=== PATIENT | male | born 1950 | race Caucasian/White ===

== ENCOUNTER 2017-05-17 05:36 | Outpatient (CLI) | payer MEDICARE ==
[~2017-05-17] VITALS: Ht 180.3 cm; Wt 95.3 kg
[~2017-05-17 05:36] MED LIST: BENA1TAB2 PO; DEXL60CA5 PO; IRBE300T9 PO
[2017-05-17] MEDS ORDERED: METO-351 PO (10:31)
== END 2017-05-17 10:35 ==
LOC: PREOP 05:36
PROVIDERS: ATTEND Internal Medicine
DX: Z01.818 Encounter for other preprocedural examination (principal); Z85.038 Personal history of other malignant neoplasm of large intestine

== ENCOUNTER 2017-05-19 07:25 | Day surgery (SDC) | payer MEDICARE ==
--- NOTE | 2017-05-16 05:48 | HISTORY AND PHYSICAL ---
DATE OF SERVICE: 05/19/2017 HISTORY OF PRESENT ILLNESS: The patient is a 66-year-old white male seen for followup of colon cancer and hypertension. 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 On his last colonoscopy in 04/2013. No evidence for neoplasia was noted and no abnormalities were noted per Dr. Hughes. He also has history of reflux and reportedly had LA grade B changes on an EGD at that time. There was no evidence for intestinal metaplasia, and no other abnormalities were noted. With weight loss he reports he only has occasional bouts of reflux if he eats too late at night and eats too much. He denies dysphagia, melena, bright red blood per rectum, abdominal pain or distention. He has been feeling well with normal energy level. He has had 2 reported gouty attacks in the past and none in the interval 6 months since his last visit. MEDICATIONS ON ADMISSION: Include metoprolol ER 25 mg daily, irbesartan 300 mg daily, occasional Nexium for reflux over the counter. 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 FAMILY HISTORY: Mother of cervical cancer at the age of 85. Father of complications of COPD and peripheral vascular disease at the age of 82. He is not aware of any family history for colon cancer. He had 1 brother who at age 68 secondary to lung cancer, who I believe was a smoker. PHYSICAL EXAMINATION: GENERAL: Reveals a well appearing white male in no acute distress. VITAL SIGNS: Blood pressure was 122/70, weight was down 3 pounds to 210, height is 5 foot 10. NECK: Revealed no JVD, adenopathy or bruits. CHEST: Clear. CARDIOVASCULAR: Regular rate and rhythm without murmur, S3 or S4. ABDOMEN: Reveals well healed midline surgical incision. No masses, organomegaly or tenderness are noted. Bowel sounds are noted bilaterally. EXTREMITIES: Reveal no cyanosis, clubbing or edema. Skin evaluation of the face, chest and back reveal no suspicious nevi. ASSESSMENT AND PLAN: 1. Hypertension under good control on current therapy. No changes recommended. 2. The patient was set up for surveillance colonoscopy due to past history of colon cancer. Prep instructions with Suprep kit were given. Questions were answered. The patient was set up for 05/19. Job ID: [id number] DocumentID: [id number] Dictated Date: 05/03/2017 16:37:34 Environmental Research Project Manager Date: 05/03/2017 17:46:00 Dictated By: MYRANDA VILLALPANDO MD
[~2017-05-19] VITALS: Ht 180.3 cm; Wt 95.3 kg
[~2017-05-19 07:25] MED LIST changes: +METO-351 PO
[2017-05-19] MEDS ORDERED: MIDAZOLAM 2 MG/2 ML (VERSED) VIAL IVP PRN (07:30)
[2017-05-19] MEDS ORDERED: fentaNYL INJECTION 100 MCG/2 ML AMP IVP PRN (07:30)
[2017-05-19] MEDS ORDERED: 1/2 NS IV SOLUTION 1,000 ML IV STA (07:30)
--- OUTSIDE RECORDS SUMMARY | 2017-05-19 07:32 | XMS REPORT | Continuity of Care Document ---
Author Author [facility] Organization [facility] Address Unknown Phone Unavailable Care Team Providers Care Mascara Molder Name Role Phone JAMES DODGE MD PP Insurance Providers Payer Name Policy Number Subscriber Name Relationship [facility] [id number] Moncho Martin 01 Self / Same As Patient Advance Directives Directive Response Recorded Date Advance Directives N 04/25/13 7:47am Health Care Power of Supervisor Powdered Metal N 04/25/13 7:47am Organ Donor N 04/25/13 7:47am Problems No Known Problems or Medical conditions. Allergies, Adverse Reactions, Alerts Allergen Type Severity Reaction Last Updated carisoprodol Allergy HIVES 02/24/11 Medications Medication Dose Units Route Sig Qty Days Dexlansoprazole (Dexilant) 60 Mg PO DAILY Benazepril/HCTZ (Lotensin Hct 10-12.5 Tablet) 1 Each PO DAILY Irbesartan (Avapro) 300 Mg PO DAILY Response Recorded Date/Time Status not known Unknown Results Test Date Result Interp. Ref. Range Alanine Aminotransferase (ALT/SGPT) December 17, 2009 1:34pm 42 U/L N 30-65 Albumin December 17, 2009 1:34pm 3.8 G/ DL N 3.4-5.0 Alkaline Phosphatase December 17, 2009 1:34pm 63 U/L N 50-136 Aspartate Amino Transf (AST/SGOT) December 17, 2009 1:34pm 17 U/L N 15-37 BUN/Creatinine Ratio December 17, 2009 1:34pm 15 - Band Neutrophils April 22, 2008 12:25pm 21 % - Basophils # (Auto) December 17, 2009 1:34pm 0.0 10^3/uL N 0.0-0.1 Basophils % (Manual) April 22, 2008 12:25pm 0 % - Basophils (%) (Auto) December 17, 2009 1:34pm 1 % N 0-10 Blood Urea Nitrogen December 17, 2009 1:34pm 17 MG/DL N 7-18 Calcium Level December 17, 2009 1:34pm 8.3 MG/DL L 8.5-10.1 Carbon Dioxide Level December 17, 2009 1:34pm 30 MMOL/L N 21-32 Carcinoembryonic Antigen December 17, 2009 1:34pm 1.2 NG/ML - Chloride Level December 17, 2009 1:34pm 102 MMOL/L N 101-110 Creatinine December 17, 2009 1:34pm 1.1 MG/DL N 0.6-1.3 Eosinophils # (Auto) December 17, 2009 1:34pm 0.2 10^3/uL N 0.0-0.3 Eosinophils % (Manual) April 22, 2008 12:25pm 0 % - Eosinophils (%) (Auto) December 17, 2009 1:34pm 3 % N 0-10 Glucose Level December 17, 2009 1:34pm 100 MG/DL N 70-126 Hematocrit December 17, 2009 1:34pm 40 % N 40-54 Hemoglobin December 17, 2009 1:34pm 14.2 G/DL N 13.3-17.7 Lymphocytes # (Auto) December 17, 2009 1:34pm 2.2 X 10^3 N 1.0-4.0 Lymphocytes % (Manual) April 22, 2008 12:25pm 15 % - Lymphocytes (%) (Auto) December 17, 2009 1:34pm 32 % N 12-44 Mean Corpuscular Hemoglobin December 17, 2009 1:34pm 32 PG N 25-34 Mean Corpuscular Hemoglobin Concent December 17, 2009 1:34pm 35 G/DL N 32-36 Mean Corpuscular Volume December 17, 2009 1:34pm 90 FL N 80-99 Mean Platelet Volume December 17, 2009 1:34pm 9.2 FL N 7.4-10.4 Monocytes # (Auto) December 17, 2009 1:34pm 0.7 X 10^3 N 0.0-1.0 Monocytes % (Manual) April 22, 2008 12:25pm 3 % - Monocytes (%) (Auto) December 17, 2009 1:34pm 10 % N 0-12 Neutrophils # (Auto) December 17, 2009 1:34pm 3.8 X 10^3 N 1.8-7.8 Neutrophils % (Manual) April 22, 2008 12:25pm 59 % - Neutrophils (%) (Auto) December 17, 2009 1:34pm 55 % N 42-75 Platelet Count December 17, 2009 1:34pm 208 10^3/uL N 130-400 Potassium Level December 17, 2009 1:34pm 3.8 MMOL/L N 3.6-5.0 Reactive Lymphocytes April 22, 2008 12:25pm 2 % - Red Blood Count December 17, 2009 1:34pm 4.47 10^6/uL N 4.35-5.85 Red Cell Distribution Width December 17, 2009 1:34pm 13.1 % N 10.0-14.5 Sodium Level December 17, 2009 1:34pm 138 MMOL/L N 135-145 Total Bilirubin December 17, 2009 1:34pm 0.9 MG/DL N 0.0-1.0 Total Protein December 17, 2009 1:34pm 6.7 G/DL N 6.4-8.2 White Blood Count December 17, 2009 1:34pm 6.9 10^3/uL N 4.3-11.0 Estimat Glomerular Filtration Rate December 17, 2009 1:34pm > 60 - Blood Morphology Comment April 22, 2008 12:25pm Normal - Procedures Procedure Code Date DIAGNOSTIC COLONOSCOPY 43197 09/24/07 UPPER GI ENDOSCOPY BIOPSY 02009 09/24/07 UPPER GI ENDOSCOPY BIOPSY [id number] 11/06/08 DIAGNOSTIC COLONOSCOPY 55441 02/24/11 UPPER GI ENDOSCOPY BIOPSY 56808 02/24/11 UPPER GI ENDOSCOPY BIOPSY 25164 06/09/11
[2017-05-19 07:47] VITALS: BP 168/107
[2017-05-19] MEDS ORDERED: LIDOCAINE JELLY 2% (XYLOCAINE) 5 ML TUBE ONE (07:53)
[2017-05-19] MEDS ORDERED: fentaNYL INJECTION 100 MCG/2 ML AMP ONE (07:53)
[2017-05-19] MEDS ORDERED: MIDAZOLAM 2 MG/2 ML (VERSED) VIAL ONE (07:53)
--- NOTE | 2017-05-19 07:53 | Pre-Op Note & Conscious Sedat ---
Pre-Operative Progress Note H&P Reviewed The H&P was reviewed, patient examined and no changes noted. Date H&P Reviewed: May 19, 2017 Time H&P Reviewed: 07:50 Conscious Sedation Pre-Proced ASA Class: 2 Airway Mallampati Classification: (confed[place] sal[place] appropriate class) I. II. III, IV Lungs Heart ASA score ASA 1: a normal healthy patient ASA 2: a patient with a mild systemic disease (mid diabetes, controlled hypertension, obesity ASA 3: a patient with a severe systemic disease that limits activity (angina , COPD, prior Myocardial infarction) ASA 4: a patient with an incapacitating disease that is a constant threat to life (CHF, renal failure) ASA 5: a moribund patient not expected to survive 24 hrs. (ruptured aneurysm) ASA 6: a declared brain patient whose organs are being harvested. For emergent operations, add the letter E after the classification Grade 2 Sedation Plan: Analgesia, Amnesia, Plan communicated to team members, Discussed options with patient/fam, Discussed risks with patient/fam Note The patient is an appropriate candidate to undergo the planned procedure, sedation, and anesthesia. The patient immediately re-assessed prior to indication. MYRANDA VILLALPANDO MD May 19, 2017 07:53
[2017-05-19 09:00] VITALS: BP 159/95
[2017-05-19 09:30] VITALS: BP 150/94
[2017-05-19] MEDS ORDERED: LIDOCAINE JELLY 2% (XYLOCAINE) 5 ML TUBE TOP ONE (12:15)
--- NOTE | 2017-05-20 10:16 | OPERATIVE REPORT ---
PROCEDURE PHYSICIAN: MYRANDA VILLALPANDO DATE OF PROCEDURE: 05/19/2017 ONCOLOGIST: Dr. Remy PROCEDURE: The patient was placed in left lateral decubitus position. Prior to undergoing colonoscopy, digital rectal evaluation was performed. Anal sphincter tone was normal and the perianal reflex was intact. The prostate was mildly enlarged, nontender and anodular to digital inspection. The colonoscope was then inserted into the rectum and under direct visualization, advanced to the cecum. The cecum was identified by identification of the ileocecal valve, cecal strap. Photographic documentation was obtained. Careful inspection was made as the endoscope was withdrawn. The patient tolerated the procedure well. FINDINGS: There no evidence for internal or external hemorrhoids and the rectum was unremarkable. Present at approximately 12 cm from the anal verge in the distal sigmoid colon, just above the rectosigmoid junction was an unremarkable appearing anastomotic margin. Saved for a little indention extrinsically, a biopsy was obtained. There was no evidence for induration or mass type effect on biopsy. Submitted for histopathology. One diminutive hyperplastic appearing distal sigmoid polyp was noted measuring 3 mm in size. It was biopsied and ablated, and submitted for histopathology. Present in the proximal sigmoid colon another diminutive polyp was noted versus a prominent lymphoid follicle. It was biopsied, ablated, and submitted for histopathology with no significant blood loss. Diminutive hyperplastic appearing polyp was noted at the splenic flexure. It was biopsied and ablated, and submitted for histopathology. Present in the distal transverse colon was an area of likely scope trauma with erythema. It was biopsied and submitted for histopathology. The remainder of the transverse colon, hepatic flexure, ascending colon and cecum, as well as ileocecal valve were unremarkable. ASSESSMENT: No evidence for colon cancer was noted today. Multiple diminutive polyps as noted above were removed. I suspect at worst one may be compatible with a tubular adenoma. The patient had digital findings compatible with mild BPH. As long as there are no surprises on histopathology report, we will advocate consideration for repeat surveillance colonoscopy in 3 years. Job ID: [id number] Dictated Date: 05/19/2017 11:54:13 Fish Protector Date: 05/20/2017 10:05:36 / stone
== END 2017-05-19 09:35 | disposition home or self-care (01) ==
LOC: ENDO 07:25
PROVIDERS: ATTEND Internal Medicine
DX: Z12.11 Encounter for screening for malignant neoplasm of colon (principal); D12.3 Benign neoplasm of transverse colon; K63.5 Polyp of colon; Z85.038 Personal history of other malignant neoplasm of large intestine; I10 Essential (primary) hypertension; Z79.899 Other long term (current) drug therapy

== ENCOUNTER 2020-09-07 04:34 | Emergency (ER) | payer MEDICARE ==
[~2020-09-07] VITALS: Ht 180.3 cm; Wt 95.2 kg
[2020-09-07] MEDS ORDERED: diphenhydrAMINE 50 MG/ML INJ (BENADRYL) IV STA (04:39)
[2020-09-07] MEDS ORDERED: methylPREDNISolone 125 MG (Solu-MEDROL) VIAL IV STA (04:39)
[2020-09-07] MEDS ORDERED: FAMOTIDINE 20MG/2ML IV (PEPCID) IV STA (04:39)
--- NOTE | 2020-09-07 04:44 | ED EENT ---
History of Present Illness General Chief Complaint: Oral/Throat Problems Stated Complaint: SOA Source: patient History of Present Illness Date Seen by Provider: Sep 07, 2020 Time Seen by Provider: 04:35 Initial Comments PT ARRIVES VIA POV FROM HOME C/O SWELLING TO THROAT/NECK AND TO UVULA--BEGAN LAST NIGHT NO SHORTNESS OF BREATH NO CHEST PAIN NO RASH NO ITCHING NO SWELLING ANYWHERE ELSE PT WAS ABLE TO SWALLOW LIQUIDS PRIOR TO ARRIVAL NO HISTORY OF SIMILAR PT IS ON AN ARB AND BETA-TAMI FOR HTN NO RECENT MEDICATION CHANGES NO NEW FOODS NO FEVER OR RECENT ILLNESS PCP: DR. VILLALPANDO Allergies and Home Medications Allergies Coded Allergies: carisoprodol (Unverified Allergy, Unknown, HIVES, 09/07/20) Uncoded Allergies: MUSCLE RELAXANT (Allergy, Unknown, 09/07/20) Home Medications Irbesartan 300 Mg Tablet, 300 MG PO DAILY, (Reported) Metoprolol Succinate 25 Mg Tab.er.24h, 25 MG PO DAILY, (Reported) Patient Home Medication List Home Medication List Reviewed: Yes Review of Systems Review of Systems Constitutional: no symptoms reported Eyes: No Symptoms Reported Ears: No Symptoms Reported Nose: no symptoms reported Mouth: no symptoms reported Throat: see HPI Respiratory: no symptoms reported Cardiovascular: no symptoms reported Gastrointestinal: no symptoms reported Musculoskeletal: no symptoms reported Skin: no symptoms reported Neurological: No Symptoms Reported Hematologic/Lymphatic: No Symptoms Reported Immunological/Allergic: no symptoms reported Past Kjyrwgw-Polihf-Fqugsk Hx Past Med/Social Hx: Reviewed and Corrections made Patient Social History Type Used: Cigarettes Former Smoker, Quit: May 17, 1995 Recent Foreign Travel: No Contact w/Someone Who Travel: No Recent Hopitalizations: No Immunizations Up To Date Date of Influenza Vaccine: Aug 01, 2016 Seasonal Allergies Seasonal Allergies: No Past Medical History Surgeries: Yes Abdominal Respiratory: No Cardiac: Yes Hypertension Reproductive Disorders: No Sexually Transmitted Disease: Yes HIV/AIDS: No Gastrointestinal: Yes (COLON CANCER) Gastroesophageal Reflux, Chronic Diarrhea, Polyps Musculoskeletal: Yes Gout Loss of Vision: Bilateral Hearing Impairment: Denies Cancer: Yes Colon Did You Recieve Any Treatments: Yes What Type of Treatment Did You: Surgical Intervention Adverse Reaction/Blood Tranf: No (N/A) Physical Exam Vital Signs Vital Signs - First Documented 09/07/20 04:35 Temp 36.2 Pulse 90 Resp 18 B/P (MAP) 167/107 (127) Pulse Ox 99 O2 Delivery Room Air Height, Weight, BMI Height: 5'11.00" Weight: 210lbs. 0.0oz. 95.569186hn; 29.3 BMI Method: General Appearance: WD/WN, no apparent distress Mouth/Throat: No tongue swollen, No tonsillar swelling; uvula swelling, voice changes (VERY SLIGHTLY MUFFLED. ), other (SWELLING TO ANTERIOR NECK) Neck: non-tender, normal inspection Cardiovascular: regular rate, rhythm, no murmur Respiratory: normal breath sounds, no respiratory distress, no accessory muscle use; No stridor Neurologic/Psychiatric: alert, normal mood/affect Skin: normal color, warm/dry; No rash Progress/Results/Core Measures Results/Orders Lab Results Laboratory Tests Test 09/07/20 04:42 Range/Units White Blood Count 7.8 4.3-11.0 10^3/uL Red Blood Count 4.49 4.30-5.52 10^6/uL Hemoglobin 14.5 13.3-17.7 g/dL Hematocrit 43 40-54 % Mean Corpuscular Volume 96 80-99 fL Mean Corpuscular Hemoglobin 32 25-34 pg Mean Corpuscular Hemoglobin Concent 34 32-36 g/dL Red Cell Distribution Width 12.7 10.0-14.5 % Platelet Count 227 130-400 10^3/uL Mean Platelet Volume 9.1 9.0-12.2 fL Immature Granulocyte % (Auto) 1 % Neutrophils (%) (Auto) 54 42-75 % Lymphocytes (%) (Auto) 33 12-44 % Monocytes (%) (Auto) 7 0-12 % Eosinophils (%) (Auto) 4 0-10 % Basophils (%) (Auto) 1 0-10 % Neutrophils # (Auto) 4.2 1.8-7.8 10^3/uL Lymphocytes # (Auto) 2.6 1.0-4.0 10^3/uL Monocytes # (Auto) 0.6 0.0-1.0 10^3/uL Eosinophils # (Auto) 0.3 0.0-0.3 10^3/uL Basophils # (Auto) 0.0 0.0-0.1 10^3/uL Immature Granulocyte # (Auto) 0.1 0.0-0.1 10^3/uL Erythrocyte Sedimentation Rate 8 0-30 MM/HR Prothrombin Time 12.5 12.2-14.7 SEC INR Comment 0.9 0.8-1.4 Activated Partial Thromboplast Time 28 24-35 SEC Sodium Level 142 135-145 MMOL/L Potassium Level 4.3 3.6-5.0 MMOL/L Chloride Level 106 98-107 MMOL/L Carbon Dioxide Level 24 21-32 MMOL/L Anion Gap 12 5-14 MMOL/L Blood Urea Nitrogen 18 7-18 MG/DL Creatinine 0.90 0.60-1.30 MG/DL Estimat Glomerular Filtration Rate > 60 BUN/Creatinine Ratio 20 Glucose Level 98 70-105 MG/DL Calcium Level 8.6 8.5-10.1 MG/DL Corrected Calcium 8.6 8.5-10.1 MG/DL Total Bilirubin 0.6 0.1-1.0 MG/DL Aspartate Amino Transf (AST/SGOT) 21 5-34 U/L Alanine Aminotransferase (ALT/SGPT) 24 0-55 U/L Alkaline Phosphatase 45 40-136 U/L Total Protein 7.0 6.4-8.2 GM/DL Albumin 4.0 3.2-4.5 GM/DL My Orders Orders - JAY JAY HEIN DO Ed Iv/Invasive Line Start (09/07/20 04:39) Monitor-Rhythm Ecg Trace Only (09/07/20 04:39) Cbc With Automated Diff (09/07/20 04:39) Comprehensive Metabolic Panel (09/07/20 04:39) Erythrocyte Sedimentation Rate (09/07/20 04:39) Protime With Inr (09/07/20 04:39) Partial Thromboplastin Time (09/07/20 04:39) Methylprednisolone Sod Succ (Solu-Medrol (09/07/20 04:39) Diphenhydramine Injection (Benadryl Inje (09/07/20 04:39) Famotidine Injection (Pepcid Injection) (09/07/20 04:39) Epinephrine 1 Mg Injection (Adrenalin I (09/07/20 04:45) Medications Given in ED Current Medications Medications Dose Ordered Sig/Kevin Route Start Time Stop Time Status Last Admin Dose Admin Epinephrine HCl 0.3 mg ONCE ONCE IM 09/07/20 04:45 09/07/20 04:46 DC 09/07/20 04:58 0.3 MG Vital Signs/I&O 09/07/20 04:35 Temp 36.2 Pulse 90 Resp 18 B/P (MAP) 167/107 (127) Pulse Ox 99 O2 Delivery Room Air Progress Progress Note : Progress Note GIVEN EPINEPHRINE, SOLU-MEDROL, PEPCID AND BENADRYL WITH IMPROVEMENT IN SYMPTOMS DECREASED SWELLING OF UVULA AND ANTERIOR NECK VOICE IS NORMAL NO PROBLEMS SWALLOWING FEELS COMFORTABLE GOING HOME STATES HE HAS PREDNISONE AT HOME IF HE NEEDS IT. Departure Impression Primary Impression: Angioedema Additional Impression: Uvular swelling Disposition: HOME, SELF-CARE Condition: Improved Departure-Patient Inst. Referrals: MYRANDA VILLALPANDO MD (PCP) Primary Care Physician Patient Instructions: Angioedema (DC) Add. Discharge Instructions: FOLLOW UP WITH DR. VILLALPANDO FOR FURTHER CARE All discharge instructions reviewed with patient and/or family. Voiced understanding. JAY JAY HEIN DO Sep 07, 2020 04:44
[2020-09-07] MEDS ORDERED: EPINEPHrine INJECTION 1 MG/ML AMP IM ONE (04:45)
[2020-09-07 04:49] LABS: BASOPHILS % (AUTO) 1 % (0-10); EOSINOPHILS # (AUTO) 0.3 10^3/uL (0.0-0.3); EOSINOPHILS % (AUTO) 4 % (0-10); HEMATOCRIT 43 % (40-54); HEMOGLOBIN 14.5 g/dL (13.3-17.7); LYMPHOCYTES # (AUTO) 2.6 10^3/uL (1.0-4.0); LYMPHOCYTES % (AUTO) 33 % (12-44); MEAN CORPUSCULAR HEMOGLOBIN 32 pg (25-34); MEAN CORPUSCULAR HGB CONC 34 g/dL (32-36); MEAN CORPUSCULAR VOLUME 96 fL (80-99); MEAN PLATELET VOLUME 9.1 fL (9.0-12.2); MONOCYTES # (AUTO) 0.6 10^3/uL (0.0-1.0); MONOCYTES % (AUTO) 7 % (0-12); NEUTROPHILS # (AUTO) 4.2 10^3/uL (1.8-7.8); NEUTROPHILS % (AUTO) 54 % (42-75); PLATELET COUNT 227 10^3/uL (130-400); WHITE BLOOD COUNT 7.8 10^3/uL (4.3-11.0)
[2020-09-07 04:57] LABS: CHLORIDE 106 MMOL/L (98-107); POTASSIUM 4.3 MMOL/L (3.6-5.0); SODIUM 142 MMOL/L (135-145)
[2020-09-07 04:59] LABS: CALCIUM 8.6 MG/DL (8.5-10.1)
[2020-09-07 05:00] LABS: GLUCOSE 98 MG/DL (70-105); INR 0.9 (0.8-1.4); PROTHROMBIN TIME PATIENT 12.5 SEC (12.2-14.7)
[2020-09-07 05:01] LABS: CARBON DIOXIDE 24 MMOL/L (21-32)
[2020-09-07 05:02] LABS: BILIRUBIN,TOTAL 0.6 MG/DL (0.1-1.0)
[2020-09-07 05:03] LABS: ALKALINE PHOSPHATASE 45 U/L (40-136); GFR ESTIMATED > 60
[2020-09-07 05:04] LABS: BUN/CREATININE RATIO 20
[2020-09-07 05:06] LABS: ALANINE AMINOTRANSFERASE 24 U/L (0-55)
[2020-09-07 05:08] LABS: ERYTHROCYTE SEDIMENTATION RATE 8 MM/HR (0-30)
[2020-09-07 05:56] VITALS: BP 150/79
== END 2020-09-07 05:56 | disposition home or self-care (01) ==
LOC: EDUNIT# 04:34 → ER 04:39
DX: T78.3XXA Angioneurotic edema, initial encounter (principal); I10 Essential (primary) hypertension; Z80.0 Family history of malignant neoplasm of digestive organs; Z87.891 Personal history of nicotine dependence; Z88.8 Allergy status to other drugs, medicaments and biological substances
CPT/HCPCS: 36415; 80053; 85025; 85610; 85652; 85730; 93041

== ENCOUNTER 2021-06-17 05:34 | Outpatient (CLI) | payer MEDICARE ==
[~2021-06-17] VITALS: Ht 180.3 cm; Wt 95.3 kg
== END 2021-06-17 13:42 | disposition home or self-care (01) ==
LOC: PREOP 05:34
PROVIDERS: ATTEND Internal Medicine
DX: Z01.818 Encounter for other preprocedural examination (principal)

== ENCOUNTER 2021-06-25 07:33 | Day surgery (SDC) | payer MEDICARE ==
--- NOTE | 2021-06-17 06:14 | HISTORY AND PHYSICAL ---
DATE OF SERVICE: COLONOSCOPY H AND P HISTORY OF PRESENT ILLNESS: The patient is a 70-year-old white male seen for followup of hypertension and colon cancer. He was initially diagnosed with Armijo's C colon cancer in 10/1999, underwent left hemicolectomy involving the sigmoid colon. He has had no evidence for recurrence. His last colonoscopy was 4 years ago, at which time he had multiple polyps removed, all but one was hyperplastic. He had one tubular adenoma several millimeters in size, removed from the splenic flexure. Reports that the patient has not been feeling well. He was here for followup of hypertension as well, only notes his blood pressure is up. He forgets to take his medication. 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 Past 15-yrnu-fydk smoking history, but quit in 1992. Occasional social alcohol intake in the form of [employer] in the evening. PHYSICAL EXAMINATION: GENERAL: Reveals a white male who appeared to be in no acute distress. HEENT: Unremarkable. VITAL SIGNS: Blood pressure 132/86. Weight was down 4.8 pounds to 213. CHEST: Clear. CARDIOVASCULAR: Reveals regular rate and rhythm without murmur, S3 or S4. ABDOMEN: Soft, supple without mass, organomegaly or tenderness. EXTREMITIES: Reveal no cyanosis, clubbing or edema. SKIN: Evaluation revealed no suspicious nevi. Ear canals clear with normal TMs. ASSESSMENT AND PLAN: 1. Hypertension, under reasonable control. Continue 300 mg of irbesartan daily and 25 mg of metoprolol ER. 2. History of colon cancer, set up for surveillance colonoscopy on 06/18/2021. 3. Prep instructions with the Suprep kit were given and questions were answered. 4. Follow up in 6 months. Job ID: [id number] DocumentID: [id number] Dictated Date: 05/26/2021 15:53:34 Resource Conservationist Date: 05/26/2021 17:15:37 Dictated By: MYRANDA VILLALPANDO MD
[2021-06-25] MEDS ORDERED: LACTATED RINGERS 1,000 ML IV STA (07:39)
[2021-06-25] MEDS ORDERED: LIDOCAINE JELLY 2% 6 ML SYRINGE MM PRN (07:45)
[2021-06-25] MEDS ORDERED: PROPOFOL INJECTION 50 ML IV ONE (07:47)
[2021-06-25] MEDS ORDERED: MIDAZOLAM 2 MG/2 ML (VERSED) VIAL ONE (07:47)
[2021-06-25 07:50] VITALS: BP 162/102
--- NOTE | 2021-06-25 07:58 | Pre-Op Note & Conscious Sedat ---
Pre-Operative Progress Note H&P Reviewed The H&P was reviewed, patient examined and no changes noted. Date H&P Reviewed: Jun 25, 2021 Time H&P Reviewed: 07:58 Conscious Sedation Pre-Proced ASA Score 2 For ASA 3 and 4: Consider anesthesia and medical clearance. Also, for patients with a history of failed moderate sedation consider anesthesia. Airway Lungs Heart ASA score ASA 1: a normal healthy patient ASA 2: a patient with a mild systemic disease (mid diabetes, controlled hypertension, obesity ASA 3: a patient with a severe systemic disease that limits activity (angina, COPD, prior Myocardial infarction) ASA 4: a patient with an incapacitating disease that is a constant threat to life (CHF, renal failure) ASA 5: a moribund patient not expected to survive 24 hrs. (ruptured aneurysm) ASA 6: a declared brain- patient whose organs are being harvested. For emergent operations, add the letter E after the classification Mallampati Classification Grade 2 Sedation Plan Analgesia, Amnesia, Plan communicated to team members, Discussed options with patient/fam, Discussed risks with patient/fam The patient is an appropriate candidate to undergo the planned procedure, sedation, and anesthesia. The patient immediately re-assessed prior to indication. MYRANDA VILLALPANDO MD Jun 25, 2021 07:58
[2021-06-25 09:01] VITALS: BP 113/67
[2021-06-25 09:06] VITALS: BP 117/72
[2021-06-25 09:15] VITALS: BP 117/72
[2021-06-25 09:39] VITALS: BP 140/86
--- NOTE | 2021-06-25 09:43 | Anesthesia-General Post-Op ---
MAC Patient Condition Mental Status/LOC: Same as Preop Cardiovascular: Satisfactory Nausea/Vomiting: Absent Respiratory: Satisfactory Pain: Controlled Complications: Absent Post Op Complications Complications None Follow Up Care/Instructions Patient Instructions None needed. Anesthesiology Discharge Order Discharge Order Patient is doing well, no complaints, stable vital signs, no apparent adverse anesthesia problems. No complications reported per nursing. ANI COPE CRNA Jun 25, 2021 09:43
--- NOTE | 2021-06-25 10:36 | OPERATIVE REPORT ---
DATE OF SERVICE: COLONOSCOPY SUMMARY his primary care physician. INDICATION FOR THE PROCEDURE: Colonoscopy was performed for surveillance due to past history of colon cancer. DESCRIPTION OF PROCEDURE: The patient was placed in the left lateral decubitus position. Prior to undergoing colonoscopy, digital rectal evaluation was performed. Anal sphincter tone was normal. Perianal reflexes intact. Prostate is mildly enlarged on digital inspection and anodular. No abnormalities were noted on digital evaluation of the anal canal or distal rectal vault. The colonoscope was then inserted into the rectum and under direct visualization advanced to cecum. The cecum was identified by identification of the ileocecal valve and cecal strap. Photographic documentation was obtained. Careful inspection was made as colonoscope was withdrawn. The quality of prep was good. FINDINGS: There was no evidence for internal or external hemorrhoids and the rectum was unremarkable. Present at the rectosigmoid junction, which was also the anastomotic margin was a questionable polyp, it was biopsied and submitted for histopathology. What was left of the sigmoid colon was unremarkable as was the descending colon. There was another questionable polyp noted at the splenic flexure. It was biopsied and ablated and submitted for histopathology. The transverse colon and hepatic flexure were unremarkable. Present in the proximal ascending colon was a sessile 6 mm adenomatous appearing polyp. It had uniform mucosal features. It was photographed and biopsied and ablated with no significant blood loss. The well visualized cecum of the colon was unremarkable. ASSESSMENT: Three polyps removed with the most significant 6 mm sessile polyp noted in the proximal ascending colon. We will await histopathology report before making recommendations on future surveillance colonoscopy. Digital evaluation of the prostate was compatible with mild BPH. No other abnormalities noted on today's procedure. Job ID: [id number] DocumentID: [id number] Dictated Date: 06/25/2021 09:01:37 Extractions Technologist Date: 06/25/2021 10:35:58 Dictated By: MYRANDA VILLALPANDO MD
== END 2021-06-25 09:39 | disposition home or self-care (01) ==
LOC: ENDO 07:33
PROVIDERS: ATTEND Internal Medicine
DX: Z12.11 Encounter for screening for malignant neoplasm of colon (principal); D12.2 Benign neoplasm of ascending colon; K63.5 Polyp of colon; I10 Essential (primary) hypertension; K21.9 Gastro-esophageal reflux disease without esophagitis; Z79.899 Other long term (current) drug therapy; Z87.891 Personal history of nicotine dependence; Z85.038 Personal history of other malignant neoplasm of large intestine
CPT/HCPCS: 88305

== ENCOUNTER → 2021-12-08 | Outpatient (CLI) | payer SELFPAY ==
--- NOTE | 2021-12-08 14:50 | Diagnostic Imaging Report ---
EXAMINATION: CT calcium scoring without contrast. TECHNIQUE: Multiple contiguous axial images were obtained through the chest without the use of intravenous contrast for purposes of calcium scoring. All CT scans use one or more of the following dose optimizing techniques: automated exposure control, MA and/or KvP adjustment based on patient size and exam type or iterative reconstruction. HISTORY: Hypertension COMPARISON: None available. FINDINGS: The calculated coronary artery calcium score is 119.5. There is no edema or pneumonia. No pleural effusion. No pneumothorax. No suspicious nodules. Heart size is normal. No pericardial effusion. Aorta is normal in caliber. There is no mediastinal lymphadenopathy. Limited views of the upper abdomen are unremarkable. There are no suspicious osseus lesions. IMPRESSION: 1. Calculated coronary artery calcium score of 119.5 placing the patient at the 25th and 50th percentiles for age. Dictated by: Dictated on workstation # [id number]
== END ==
LOC: RAD FS 13:12
PROVIDERS: ATTEND Internal Medicine
DX: I10 Essential (primary) hypertension (principal); E83.52 Hypercalcemia
CPT/HCPCS: 75571

== ENCOUNTER → 2022-05-18 | Outpatient (CLI) | payer MEDICARE ==
--- NOTE | 2022-05-18 15:28 | Diagnostic Imaging Report ---
PROCEDURE: CT abdomen and pelvis without contrast. TECHNIQUE: Multiple contiguous axial images were obtained through the abdomen and pelvis without the use of intravenous contrast. Auto Exposure Controls were utilized during the CT exam to meet ALARA standards for radiation dose reduction. INDICATION: Hematuria. Patient does have history of colon carcinoma. COMPARISON: No prior studies are available for comparison. FINDINGS: The lung bases are clear. The liver is unremarkable. The gallbladder is contracted. No biliary ductal dilatation is seen. Pancreas and spleen are unremarkable. No adrenal mass is detected. No renal calculi are identified. There is no hydronephrosis. No definite ureteral or bladder calculi are seen. Aorta is calcified but nonaneurysmal. The small and large bowel loops are normal in caliber. There are postop changes with an anastomosis at the rectosigmoid junction. No free fluid or fluid collection is identified. No central retroperitoneal or mesenteric lymphadenopathy is identified. No pelvic lymphadenopathy is detected. Prostate is unremarkable. The bony structures are nonacute. IMPRESSION: 1. Essentially unremarkable noncontrast CT of the abdomen and pelvis. No urinary tract calculi or hydronephrosis is detected. 2. Postsurgical changes in the pelvis at the rectosigmoid junction. 3. No evidence of abdominal or pelvic lymphadenopathy or mass. Dictated by: Dictated on workstation # [id number]
== END ==
LOC: RAD 14:29
PROVIDERS: ATTEND Urology
DX: R31.9 Hematuria, unspecified (principal); Z98.890 Other specified postprocedural states
CPT/HCPCS: 74176

== ENCOUNTER 2023-04-06 05:40 | Outpatient (CLI) | payer MEDICARE ==
[~2023-04-06] VITALS: Ht 180.3 cm; Wt 90.9 kg
[2023-04-06] MEDS ORDERED: CAND32TA21 PO (10:46)
[2023-04-06] MEDS ORDERED: OMEP20CA18 PO (10:46)
[2023-04-06] MEDS ORDERED: HYDR25TA4 PO (10:46)
== END 2023-04-06 10:52 | disposition home or self-care (01) ==
LOC: PREOP 05:40
PROVIDERS: ATTEND Internal Medicine
DX: Z01.818 Encounter for other preprocedural examination (principal)

== ENCOUNTER 2023-04-14 07:59 | Day surgery (SDC) | payer MEDICARE ==
--- NOTE | 2023-04-06 09:54 | HISTORY AND PHYSICAL ---
ESOPHAGOGASTRODUODENOSCOPY HISTORY AND PHYSICAL HISTORY OF PRESENT ILLNESS: The patient is a 72-year-old white male who reports a past history of erosive esophagitis. He had one another EGD evaluation performed over [address] Hughes that revealed per his report LA grade reflux esophagitis. He reports over the past several months despite taking proton pump inhibitor therapy, he is still having intermittent dysphagia to solids only. When he bends over, he will get a bitter taste in the back of his throat. He denies any difficulty with liquids. He has been having some hoarseness and has seen Dr. Nassar who reported that vocal cords were unremarkable, but symptoms were suspicious for reflux, for which I concur. He is not aware of any family history for GI tract malignancy and did not have evidence for Lewis's per his reports on previous endoscopy. After retiring, he has lost some weight. By our scales, he is down 14 pounds over the past year. PAST MEDICAL HISTORY: Significant for hypertension and a past history of colon cancer. He will not be due for repeat surveillance colonoscopy until 2023. PHYSICAL EXAMINATION: GENERAL: Reveals a white male, appeared to be in no acute distress. VITAL SIGNS: Weight 200 pounds, blood pressure 140/76. CHEST: Clear. CARDIOVASCULAR: Reveals regular rate and rhythm without murmur, S3, or S4. ABDOMEN: Soft, supple without mass, organomegaly, or tenderness. EXTREMITIES: Revealed no cyanosis, clubbing or edema. ASSESSMENT AND PLAN: The patient is being set up for diagnostic EGD due to past history of reflux with ongoing dysphagia to solids. Prep instructions were given. The patient will abstain from aspirin usage. Job ID: [id number] DocumentID: [id number] Dictated Date: 04/05/2023 11:20:20 Volleyball Commentator Date: 04/05/2023 12:07:00 Dictated By: MYRANDA VILLALPANDO MD
[~2023-04-14] VITALS: Ht 180 cm; Wt 90.9 kg
[~2023-04-14 07:59] MED LIST changes: +CAND32TA21 PO; +HYDR25TA4 PO; +OMEP20CA18 PO
[2023-04-14] MEDS ORDERED: HURRICAINE EXT TUBE (BENZOCAINE) XX PRN (08:00)
[2023-04-14] MEDS ORDERED: LACTATED RINGERS 1,000 ML IV STA (08:00)
--- NOTE | 2023-04-14 08:13 | Pre-Op Note & Conscious Sedat ---
Pre-Operative Progress Note Date H&P Reviewed: April 14, 2023 Time H&P Reviewed: 08:13 History & Physical: H&P Reviewed, Patient Examed, No changes noted Pre-Op Diagnosis: dysphagia Moderate Sedation PreProcedure ASA Score 2 Airway Lungs Heart ASA score ASA 1: a normal healthy patient ASA 2: a patient with a mild systemic disease (mid diabetes, controlled hypertension, obesity ASA 3: a patient with a severe systemic disease that limits activity (angina, COPD, prior Myocardial infarction) ASA 4: a patient with an incapacitating disease that is a constant threat to life (CHF, renal failure) ASA 5: a moribund patient not expected to survive 24 hrs. (ruptured aneurysm) ASA 6: a declared brain- patient whose organs are being harvested. For emergent operations, add the letter E after the classification Mallampati Classification Grade 2 Sedation Plan Analgesia, Amnesia, Plan communicated to team members, Discussed options with patient/fam, Discussed risks with patient/fam The patient is an appropriate candidate to undergo the planned procedure, sedation, and anesthesia. The patient immediately re-assessed prior to indication. MYRANDA VILLALPANDO MD April 14, 2023 08:13
[2023-04-14 08:15] VITALS: BP 153/88
[2023-04-14] MEDS ORDERED: MIDAZOLAM 2 MG/2 ML (VERSED) VIAL ONE (08:40)
[2023-04-14] MEDS ORDERED: PROPOFOL INJECTION 50 ML IV ONE (08:40)
[2023-04-14 09:00] VITALS: BP 114/67
--- NOTE | 2023-04-14 09:00 | Progress Note-Post Operative ---
Post-Procedure Note Physician (s)/Standpipe Tender (s) Physician MYRANDA VILLALPANDO MD Pre-Procedure Diagnosis Pre-Procedure Diagnosis: dysphagia Post-Procedure Diagnosis Post-operative diagnosis: The patient was placed in the left lateral decubitus position. The endoscope was inserted into the oral cavity and under direct visualization the esophagus is intubated. The endoscope was passed down esophagus to stomach and second portion of the duodenum. A careful inspection was made as the endoscope was withdrawn. Findings: Proximal mid and distal esophagus are unremarkable except for some minimal erythema at the Z-line biopsy was obtained and submitted for histopathology. There is evidence to suggest sphincter laxity but no evidence for hiatal hernia formation erosive esophagitis or external compression were noted. The cardia and fundus of the stomach are unremarkable. There is mild antral erythema noted a biopsy was obtained and submitted for Helicobacter and histopathology. No evidence for ulceration or erosion were noted. The pylorus pyloric channel duodenal bulb and second portion of the duodenum were unremarkable with typical villous type architecture on gross inspection. A/P 1. Findings are compatible with lower esophageal sphincter laxity without evidence for erosive esophagitis or overt evidence for Lewis's esophagus mild antral erythema was present biopsies from the GE junction and antrum are pending. No other abnormalities noted on today's study. MYRANDA VILLALPANDO MD April 14, 2023 09:00
[2023-04-14 09:05] VITALS: BP 115/67
[2023-04-14 09:10] VITALS: BP 122/73
[2023-04-14 09:42] VITALS: BP 122/73
--- NOTE | 2023-04-14 10:28 | Anesthesia-General Post-Op ---
MAC Patient Condition Mental Status/LOC: Same as Preop Cardiovascular: Satisfactory Nausea/Vomiting: Absent Respiratory: Satisfactory Pain: Controlled Complications: Absent Post Op Complications Complications None Follow Up Care/Instructions Patient Instructions None needed. Anesthesiology Discharge Order Discharge Order Patient is doing well, no complaints, stable vital signs, no apparent adverse anesthesia problems. No complications reported per nursing. MANJULA ALY CRNA April 14, 2023 10:28
== END 2023-04-14 09:45 | disposition home or self-care (01) ==
LOC: ENDO 07:59
PROVIDERS: ATTEND Internal Medicine
DX: K29.50 Unspecified chronic gastritis without bleeding (principal); K31.89 Other diseases of stomach and duodenum; K21.00 Gastro-esophageal reflux disease with esophagitis, without bleeding; Z85.038 Personal history of other malignant neoplasm of large intestine; Z87.891 Personal history of nicotine dependence; Z87.19 Personal history of other diseases of the digestive system